=== PATIENT | female | born 1970 | race Hispanic/Latino ===

== ENCOUNTER 2023-04-03 18:11 | Inpatient (IN) | payer SELFPAY ==
[2023-04-03] VITALS (30 sets, daily range): BP systolic 137–220; BP diastolic 94–150; PULSE 64–138; RESP 16–34; TEMP 36.2–36.3; O2SAT 91–100; BMI 30.7
--- NOTE | ~2023-04-03 | CT_ITS ---
EXAMINATION: CTA chest PE protocol DATE: 04/03/2023 21:39 INDICATION: This of breath and hypoxia. TECHNIQUE: Computed tomography (CT) pulmonary angiogram of the chest was performed with 100 mL Omnipa que-350 intravenous contrast. Additional 3D reconstructions utilizing coronal maximum intensity proje ction (MIP) were performed. Automated exposure control and iterative reconstruction technique were em ployed. The dose-length product was 301.38 mGy-cm. COMPARISON: None FINDINGS: Excellent contrast opacification of the central pulmonary arteries. There are however numerous subseg mental pulmonary arteries throughout the bilateral lower lobes, lingula and right middle lobe which r emain unopacified. No contrast is seen within the draining veins from the lower lungs and it is uncle ar whether the absence of contrast opacification in the more peripheral pulmonary arteries and draini ng veins is due to extensive pulmonary emboli or due to the phase of contrast. There does however alena ear to be a more clear-cut eccentric filling defect within the relatively well-opacified lateral segm ental pulmonary artery of the right middle lobe consistent with pulmonary embolism. Moderate-sized ri ght and small left pleural effusions with associated dependent atelectasis in the bilateral lower lob es and to lesser extent right middle lobe and lingula. There is mosaic attenuation in the lungs with some patchy groundglass opacities more centrally in the left lower lobe and lingula which appear rela claudine mild pulmonary edema or pneumonia. Pulmonary infarct considered unlikely as the patchy groundglas s opacities are central and do not extend to the periphery of the lungs. Moderate cardiomegaly and mo derate-sized pericardial effusion. No leftward bowing of the ventricular septum to suggest right hear t strain. Atherosclerotic coronary artery calcifications. There is reflux of contrast into the inferi or vena cava and hepatic veins consistent with tricuspid regurgitation. Thoracic aorta is normal in c aliber. Mild thoracic spondylosis. IMPRESSION: 1. Nonocclusive pulmonary embolism within a lateral segmental pulmonary artery of the right middle lo be. There is additional absent contrast opacification of the subsegmental pulmonary arteries and pulm onary veins throughout the bilateral lower lungs which is equivocal for additional pulmonary emboli v ersus artifact of premature early pulmonary arterial phase of contrast. 2. Moderate-sized right and small left pleural effusions. 3. Mosaic attenuation in the lungs with more focal patchy groundglass opacities in the left lower lob e and lingula which could be related to mild pulmonary edema or pneumonia. 4. Moderate cardiomegaly with moderate-sized pericardial effusion. Reviewed, dictated and finalized at location A. IMPRESSION: 1. Nonocclusive pulmonary embolism within a lateral segmental pulmonary artery of the right middle lobe. There is additional absent contrast opacification of the subsegmental pulmonary arteries and pulmonary veins throughout the bilatera l lower lungs which is equivocal for additional pulmonary emboli versus artifac t of premature early pulmonary arterial phase of contrast. 2. Moderate-sized right and small left pleural effusions. 3. Mosaic attenuation in the lungs with more focal patchy groundglass opacities in the left lower lobe and lingula which could be related to mild pulmonary ed jonathan or pneumonia. 4. Moderate cardiomegaly with moderate-sized pericardial effusion.
--- NOTE | ~2023-04-03 | US_ITS ---
EXAMINATION: US venous doppler [facility] DATE: 04/04/2023 22:07 INDICATION: Acute pulmonary emboli. TECHNIQUE: Grayscale ultrasound images without and with compression and Doppler ultrasound images of the bilateral lower extremity veins were obtained. COMPARISON: None. FINDINGS: The visualized portions of right common femoral vein, profunda (deep) femoral vein, femoral vein, pop liteal vein, peroneal veins, posterior tibial veins, and greater saphenous vein outflow are patent. The visualized portions of left common femoral vein, profunda femoral vein, femoral vein, popliteal v ein, peroneal veins, posterior tibial veins, and greater saphenous vein outflow are patent. IMPRESSION: 1. No deep venous thrombosis. Reviewed, dictated and finalized at location E.
--- NOTE | ~2023-04-03 | CT_ITS ---
Non-contrast Head CT History: Altered mental status Technique: Axial non-contrast imaging of the brain was performed. Dose reduction technique was used on this scan by utilizing automated exposure control and iterative reconstruction technique. The dose -length product (DLP) was 605.33 mGy-cm. Findings: There is no evidence of intracranial hemorrhage, mass lesion, or acute infarct. Brain par enchyma appears normal. The ventricles and subarachnoid spaces are normal in size. The calvarium ap pears normal. The visualized paranasal sinuses and mastoid air cells are clear. Impression: No significant abnormality seen. Reviewed, dictated and finalized at location . Impression: No significant abnormality seen.
--- NOTE | ~2023-04-03 | CT_ITS ---
CT ANGIOGRAM NECK AND HEAD History: Altered mental status. Technique: Serial spiral axial images through the head and neck were obtained during arterial phase I V injection of 100 cc of Omnipaque 350. 3-D postprocessing and MIP images were then reconstructed on the remote workstation. Dose reduction technique was used on this scan by utilizing automated exposur e control and iterative reconstruction technique. The dose-length product (DLP) was 1013.97 mGy-cm. CTA neck findings: Right vertebral artery is widely patent. There is probable complete occlusion of the left vertebral artery is origin versus markedly hypoplastic left vertebral artery. There is minim al reconstitution/filling of the mid to distal left vertebral artery. Bilateral common carotid, inter nal carotid, and external carotid arteries are patent. The proximal right internal carotid artery dem onstrates 0% stenosis relative to the normal distal artery lumen diameter. The proximal left internal carotid artery demonstrates 0% stenosis relative to the normal distal artery lumen diameter. Moderate right pleural effusion and small left pleural effusion are partially imaged. CTA head findings: Distal right vertebral artery, basilar artery, and posterior tissue arteries are p atent. Distal left vertebral artery is essentially completely opacified. Distal internal carotid norberto derrell, middle cerebral arteries, and anterior cerebral arteries are patent. No significant stenosis or aneurysm of the anterior circulation. Impression: Left vertebral artery is nearly completely unopacified, either due to proximal occlusion or marked hy poplasia. There is minimal reconstitution/filling of the mid to distal left vertebral artery, which i s markedly small in caliber. Remaining major cervical and intracranial vessels are unremarkable. Reviewed, dictated and finalized at location . Impression: Left vertebral artery is nearly completely unopacified, either due to proximal occlusion or marked hypoplasia. There is minimal reconstitution/filling of the mid to distal left vertebral artery, which is markedly small in caliber. Remaining major cervical and intracranial vessels are unremarkable.
--- NOTE | ~2023-04-03 | XR_ITS ---
EXAMINATION: XR chest 1V portable DATE: 04/03/2023 19:34 INDICATION: Dyspnea and bilateral lower limb swelling TECHNIQUE: frontal view of the chest was obtained. COMPARISON: None FINDINGS: Diffuse increased interstitial pattern throughout both lungs consistent with mild pulmonary edema. Op acities in the bilateral lower lung zones with blunting at the costophrenic angles consistent with sm all bilateral pleural effusions and associated atelectasis although pneumonia not excludable. Cardiom egaly. IMPRESSION: 1. Likely congestive heart failure with cardiomegaly and diffuse mild pulmonary edema. 2. Small bilateral pleural effusions with associated basilar atelectasis although pneumonia not exclu dable. Reviewed, dictated and finalized at location A. IMPRESSION: 1. Likely congestive heart failure with cardiomegaly and diffuse mild pulmonary edema. 2. Small bilateral pleural effusions with associated basilar atelectasis althou gh pneumonia not excludable.
--- NOTE | 2023-04-03 18:33 | ECG_ITS ---
Measurements Intervals Maxie Rate: 132 P: 30 FL: 149 QRS: 127 QRSD: 96 T: -4 QT: 384 QTc: 571 Interpretive Statements SINUS TACHYCARDIA POSSIBLE RIGHT VENTRICULAR HYPERTROPHY NONSPECIFIC ST & T-WAVE ABNORMALITY ABNORMAL ECG NO PREVIOUS ECG AVAILABLE FOR COMPARISON Electronically Signed On 04-04-2023 16:48:30 CDT by Joe Mitchell M.D.
[2023-04-03 18:43] LABS: Glucose Point of Care 453 mg/dl (65-105)
--- NOTE | 2023-04-03 18:43 | PC.NURSE ---
BS 453
--- NOTE | 2023-04-03 18:47 | ED.GENADULT ---
HPI - General Adult General Chief complaint: Unspecified <TREASURE Kelly Last Filed: 04/04/23 01:41> Stated complaint: htn <TREASURE Kelly Last Filed: 04/04/23 01:41> Time Seen by Provider: 04/03/23 18:39 <TREASURE Kelly Last Filed: 04/04/23 01:41> Source: patient and family <TREASURE Kelly Last Filed: 04/04/23 01:41> Mode of arrival: ambulatory <TREASURE Kelly Last Filed: 04/04/23 01:41> Limitations: language barrier <TREASURE Kelly Last Filed: 04/04/23 01:41> History of Present Illness HPI narrative: Patient is a 52-year-old female who presents to the ED with report of shortness of breath and lower extremity swelling. Patient is primarily Upper Sorbian-speaking. Son at bedside assisted in providing information. He reports patient travelled to the [facility] 10 days ago from [place]. He reports over the last 1 month, patient has had intermittent shortness of breath, cough, and lower extremity swelling. Son reports that these symptoms have worsened over the last 8 days. Patient denies any chest pain. She denies previous history of CAD/CHF. Denies lower extremity pain. She does mention having slight upper abdominal pain yesterday, but denies any pain today. Denies nausea, vomiting, fevers, urinary complaints. Patient has history of diabetes. She does not check her sugars at home. Son reports she has previously been on a pill for her diabetes, but states she saw her doctor before coming to the [facility] and was told everything was fine so she did not bring her medicine with her. She does not use insulin. <TREASURE Kelly Last Filed: 04/04/23 01:41> Related Data Allergies/adverse reactions: Allergies Allergy/AdvReac Type Severity Reaction Status Date / Time No Known Allergies Allergy Verified 04/03/23 19:19 <TREASURE Kelly Last Filed: 04/04/23 01:41> Review of Systems Review of Systems: CONSTITUTIONAL: Denies fever, chills, or sweats. ENT: Denies rhinorrhea, congestion, sore throat. CARDIOVASCULAR: See HPI. RESPIRATORY: See HPI. GASTROINTESTINAL: See HPI. GENITOURINARY: Denies dysuria or hematuria. MUSCULOSKELETAL: See HPI. NEUROLOGIC: Denies headache, numbness, or weakness. <Sadia Em PA-C - Last Filed: 04/04/23 01:41> All systems reviewed & are unremarkable except as noted in HPI and below <Sadia Em PA-C - Last Filed: 04/04/23 01:41> PMF Past Medical History Medical History: Medical History Diabetes mellitus Essential hypertension <Sadia Em PA-C - Last Filed: 04/04/23 01:41> Surgical History Surgical History: Surgical History History of (~2010) <Sadia Em PA-C - Last Filed: 04/04/23 01:41> Family History Family History: Family History Mother of unknown cause, Onset Age: 52 Father of unknown cause, Onset Age: 70 <Sadia Em PA-C - Last Filed: 04/04/23 01:41> Social History Social History: Social History Social History: The patient is here visiting from [place]. She has 8 children. She is a lifelong nonsmoker but has had heavy exposure to cooking over open fires. She denies any history of alcohol use or drug use. She was a homemaker. Smoking status: Never smoker Alcohol intake: never Substance use: never Lack of Transportation: No Lack of Food: Never True Current Housing: I Have Housing Concerned About Future Housing: No Difficulty Paying Gas/Electric Bills: No Difficulty Paying for Meds: No Currently Unemployed: No Education: Decline to Answer Difficulty
[2023-04-03 18:55] LABS: Basophils Absolute Auto 0.1 K/mm3 (0.0-0.1); Basophils Percent Auto 0.6 % (0.2-1.2); Eosinophils Percent Auto 0.5 % (0-4.4); Hematocrit 55.3 % (37.0-47.0); Immature Granulocyte Absolute 0.03 K/mm3 (0.00-0.031); Immature Granulocyte Percent A 0.4 % (0-0.5); Lymphocytes Absolute Auto 2.04 K/mm3 (0.9-3.2); Lymphocytes Percent Auto 24.7 % (18.3-44.2); Mean Corpuscular HGB Conc 32.5 g/dl (32-36); Mean Corpuscular Hemoglobin 31.2 pg (26-34); Mean Corpuscular Volume 95.8 fl (80-100); Mean Platelet Volume 10.8 fl (7.4-10.4); Monocytes Absolute Auto 0.7 K/mm3 (0.1-0.6); Monocytes Percent Auto 8.1 % (2.6-8.5); Neutrophils Absolute Auto 5.4 K/mm3 (1.3-6.7); Neutrophils Percent Auto 65.7 % (45.5-73.1); Platelet Count Result 243 k/mm3 (150-375); Red Blood Count 5.77 M/mm3 (4.2-5.4); Red Cell Distribution Width 14.8 % (11.5-14.5); White Blood Count 8.3 K/mm3 (4.5-10.0)
--- NOTE | 2023-04-03 18:58 | PC.NURSE ---
unable to obtain accurate spo2, head sensor applied.
[2023-04-03 19:04] LABS: Prothrombin Time 13.9 Seconds (11.1-14.7)
[2023-04-03 19:05] LABS: Partial Thromboplastin Time 28.9 SECONDS (22.3-36.8)
[2023-04-03 19:09] LABS: Base Excess ABG -0.3 mEq/l (+/-2.0); Carboxyhemoglobin 0.3 % THb (0-2.0); Fractional Inspired Oxygen 28 %; HCO3 ABG 26.1 mEq/l (22.0-26.0); Methemoglobin ABG 0.4 %THb (0-1.5); Oxygen Content ABG 24.4 %vol (16.0-22.0); Oxygen Saturation ABG 91.5 % (95.0-100.0); Oxyhemoglobin 90.7 % THb (90.0-100.0); PCO2 ABG 48.4 mmHg (35.0-45.0); PO2 ABG 64.5 mmHg (80.0-100.0); Reduced Hemoglobin 8.6 %THb (0-5.0); Total Hemoglobin 19.2 g/dL (12.0-18.0)
[2023-04-03 19:10] LABS: Alanine Aminotransferase 32 U/L (6-35); Albumin Level 3.7 g/dL (3.5-5.1); Alkaline Phosphatase 194 U/L (38-126); Anion Gap 7 mmol/L (8-16); Aspartate Amino Transferase 44 U/L (14-36); Blood Urea Nitrogen 18 mg/dL (7-17); Calcium 9.2 mg/dL (8.4-10.2); Carbon Dioxide 32 mmol/L (22-30); Chloride 94 mmol/L (98-107); Estimated CRCL calculation 97 ml/min; Estimated Glomerular Filt Rate > 60; Glucose 407 mg/dL (65-110); Potassium 3.9 mmol/L (3.4-5.0); Sodium 133 mmol/L (137-145)
[2023-04-03 19:10] LABS: Device NASAL CANNULA; Modified Allen's Test Pass; Site Drawn LEFT RADIAL
[2023-04-03 19:18] LABS: Lactic Acid Reflex 2.8 mmol/L (0.7-2.0)
[2023-04-03 19:23] LABS: Magnesium 1.8 mg/dL (1.6-2.3); Phosphorus 4.3 mg/dL (2.5-4.5)
[2023-04-03 19:24] LABS: Beta-Hydroxybutyrate/Acetoacetate 0.21 mmol/L (0.02-0.27)
[2023-04-03] MEDS: LABETALOL HCL INJ 100 MG/20 ML VIAL 20 MG IV PUSH (19:24)
[2023-04-03 19:25] LABS: NT Pro B Type Natriuretic Pept 8550 pg/mL (19.9-100); Troponin I 0.047 ng/mL (0.000-0.034)
[2023-04-03] MEDS: Please add drug allergy info to patient profile. 1 EACH XX (19:25)
[2023-04-03 19:38] LABS: Appearance Urine Clear (Clear); Bacteria Urine None Seen /hpf; Bilirubin Urine Negative (Negative); Blood Urine 1+ (Negative); Color Urine Yellow (Yellow); Glucose Urine UA 3+ mg/dL (Negative); Ketones Urine Negative (Negative); Leukocyte Esterase Ur Negative LEU/UL (Negative); Nitrate Urine Negative (Negative); Protein Urine 4+ mg/dL (Negative); Specific Grav Ur 1.028 (1.001-1.035); Squamous Epithelial Cell Urine Occasional /hpf (Few); WBC Urine 0-5 /hpf; pH Urine 6.5 (5.0-9.0)
[2023-04-03 19:42] LABS: Add Urine Microscopic? YES
[2023-04-03] MEDS: FUROSEMIDE INJ 40 MG/4 ML VIAL IV PUSH (19:49)
[2023-04-03 21:07] LABS: Hemoglobin A1C 12.9 % (<5.7)
[2023-04-03 21:22] LABS: Glucose Point of Care 432 mg/dl (65-105)
--- NOTE | 2023-04-03 21:42 | PM.IMHP ---
H&P: HPI History of Present Illness Date/Time: 04/03/23 21:42 Chief Complaint: Shortness of breath Narrative: 52-year-old female a past medical history of diabetes and essential hypertension who presented to the ER with shortness of breath, and leg swelling. The patient is from [place] in is here visiting family for for the next 2 months. Patient provides the following history through her son who was interpreting. She states that she has been having a dry cough for 1 month. She denies any fevers or chills. She has been having leg swelling that occurs intermittently. It went away after her recent doctor's visit about a month ago but has now recurred in the last 10 days. She reports aching in the back of her calves. She has been having increasing shortness of breath over the last 8 days. She re has been having orthopnea for the last 2 days. She was having some epigastric discomfort yesterday that occurred after eating a large meal. She denies any chest pain. She denies any palpitations. She denies a known history of heart failure. She reports that her doctor told her that her diabetes and blood pressures were good at her last doctor's visit about 3 weeks ago so she stopped taking all of her medications. She did not bring her medications with her for her trip. She denies any foamy urine, changes in urinary frequency. She does not check her sugars at home. Her glucoses in the ER were in the 400s. She denies any symptoms of peripheral neuropathy her foot wounds. On arrival to the ER the patient's blood pressures were markedly uncontrolled with systolics greater than 200. Blood pressures were improved after dose of IV labetalol and hydralazine. Review of Systems Review of Systems: 12 systems were reviewed with pertinent positives and negatives per HPI. Except as documented in the HPI, all other systems were reviewed and are negative. She denies any abdominal symptoms. She denies any increased urinary frequency or urgency or foaming urine. She does snore. She denies excessive daytime fatigue or somnolence. [facility] Past Medical History Medical History (Updated 04/03/23 @ 23:23 by Joyce Edwards DO) Diabetes mellitus Essential hypertension Surgical History Surgical History (Updated 04/03/23 @ 23:15 by Joyce Edwards DO) History of (~2010) Family History Family History (Updated 04/03/23 @ 23:16 by Joyce Edwards DO) Mother of unknown cause, Onset Age: 52 Father of unknown cause, Onset Age: 70 Social History Social History (Updated 04/03/23 @ 23:16 by Joyce Edwards DO) Social History: The patient is here visiting from [place]. She has 8 children. She is a lifelong nonsmoker but has had heavy exposure to cooking over open fires. She denies any history of alcohol use or drug use. She was a homemaker. Meds Home Medications and Allergies Allergies Allergy/AdvReac Type Severity Reaction Status Date / Time No Known Allergies Allergy Verified 04/03/23 19:19 Vital Signs Vital Signs - 24 hr 04/03/23 18:28 04/03/23 18:43 04/03/23 18:44 Temperature 97.1 F L Pulse Rate 131 H 131 H Respiratory Rate 16 Blood Pressure 220/150 H Pulse Oximetry 93 Oxygen Delivery Oxygen Flow Rate 04/03/23 18:44 04/03/23 18:49 04/03/23 18:52 Temperature Pulse Rate 133 H Respiratory Rate 29 H Blood Pressure 219/150 H Pulse Oximetry 91 92 Oxygen Delivery Nasal Cannula Nasal Cannula Oxygen Flow Rate 2 2 04/03/23 18:38 04/03/23 18:45 04/03/23 19:02 Temperature Pulse Rate 138 H 133 H 136 H Respiratory Rate 34 H 30 H 30 H Blood Pressure Pulse Oximetry Oxygen Delivery Oxygen Flow Rate 04/03/23 19:15 04/03/23 19:43 04/03/23 19:28 Temperature Pulse Rate 127 H 124 H Respiratory Rate 20 30 H Blood Pressure 152/110 H 169/142 H Pulse Oximetry 93 Oxygen Delivery Oxygen Flow Rate
[2023-04-03 22:07] LABS: Reflex Lactic Acid Yes or No Add Lactic
[2023-04-03 22:47] LABS: Troponin I 0.052 ng/mL (0.000-0.034)
[2023-04-03] MEDS: INSULIN ASPART (*BKC) 100 UNITS/ML 8 UNITS SUB-Q (22:52)
[2023-04-03] MEDS: ENOXAPARIN 80 MG/0.8 ML SYRINGE 73 MG SUB-Q (22:55)
--- NOTE | 2023-04-03 23:18 | ADMGEN ---
This patient, Jessica Stock, was admitted to IMU Room 210-01. Patient/family oriented to hospital policies and general routines including ID bracelet, bed and alarms, visiting hours, pain management, procedures, bathroom and other care routines, personal items, smoking policy, room service/diet, and visiting hours. Information on how to activate the Rapid Response Team has been discussed. Patient/Family are encouraged to report perceived risks to care and to ask questions if they do not understand what they are told or what they should do.
[2023-04-03 23:42] LABS: Lactic Acid 1.8 mmol/L (0.7-2.0)
[2023-04-04] VITALS (19 sets, daily range): BP systolic 125–149; BP diastolic 70–94; PULSE 57–96; RESP 17–19; TEMP 36.3–36.8; O2SAT 97–100; BMI 30.7
[2023-04-04] MEDS: carvediloL 12.5 MG TABLET PO ×3 (01:17→21:39)
[2023-04-04 02:45] LABS: Glucose Point of Care 356 mg/dl (65-105)
[2023-04-04 05:08] LABS: Troponin I 0.057 ng/mL (0.000-0.034)
--- NOTE | 2023-04-04 06:00 | ECHO_ITS ---
Patient Info Name: Jessica Stock Age: 52 years : 1970 Gender: Female Ht: 60 in Wt: 157 lbs BSA: 1.76 m2 HR: 70 bpm BP: 149 / 86 mmHg Heart Rhythm: Sinus Rhythm Technical Quality: Good Exam Date: 04/04/2023 8:47 AM Exam Location: [facility] Card Pulmonary Patient Status: Inpatient Admit Date: 04/04/2023 Staff Ordering Physician: Sadia Em PA-C Tavern Keeper: Louisa Rider RDCS Attending Provider: Joyce Edwards DO Referring Physician: Maria Antonia CHE; Exam Type: CA echo dop color flow w con Study Info Indications - new onset CHF, +TROP Complete two-dimensional, color flow and Doppler transthoracic echocardiogram is performed with contrast to opacify the left ventricle and to improve the deliniation of the left ventricle endocardial borders. Contrast/Agitated Saline Contrast/Ag. Saline: Definity Amount: 2.00 ml Administered By: Louisa Rider RDCS Existing IV Access: Yes IV Access Condition: patent with no signs of infiltration Summary 1. Left ventricular systolic function is moderately reduced, estimated at 35% with hypokinesis of the apex, anterior and anteroseptal cortés. Cannot rule out LV apical thrombus. Myocardium has a speckled appearance which can be seen with infiltrative process. Clinical correlation advised. 2. Large left pleural effusion. 3. There is small pericardial effusion without evidence for tamponade physiology. 4. There is a fixed calcified echodensity in the ascending aorta most likely consistent with calcified plaque. Clinical correlation advised. Consider CT angiogram of the chest or transesophageal echocardiogram if clinically indicated. 5. Left ventricular chamber dimension is normal. 6. There is mildly increased left ventricular wall thickness. 7. The left ventricular diastolic function is abnormal. 8. Right atrial chamber dimension is severely enlarged. 9. There is no aortic valve stenosis. 10. There is moderate to severe mitral valve regurgitation. 11. There is moderate tricuspid valve regurgitation. 12. Severe pulmonary hypertension, estimated pulmonary arterial systolic pressure is 60 mmHg. Left Ventricle Left ventricular systolic function is moderately reduced, estimated at 35% with hypokinesis of the apex, anterior and anteroseptal cortés. Cannot rule out LV apical thrombus. Myocardium has a speckled appearance which can be seen with infiltrative process. Clinical correlation advised. Left ventricular chamber dimension is normal. There is mildly increased left ventricular wall thickness. The left ventricular diastolic function is abnormal. Right Ventricle Right ventricular chamber dimension is normal. Right ventricular systolic function is reduced. Left Atria Left atrial chamber dimension is mildly enlarged. Right Atria Right atrial chamber dimension is severely enlarged. Aortic Valve The aortic valve is trileaflet. There is mild aortic valve sclerosis. There is no aortic valve stenosis. There is trace aortic valve regurgitation. Pulmonic Valve The pulmonic valve is not well visualized. There is trace pulmonic regurgitation. Mitral Valve The mitral valve has myxomatous leaflets. There is moderate to severe mitral valve regurgitation. Tricuspid Valve The tricuspid valve leaflets are normal. There is moderate tricuspid valve regurgitation. Severe pulmonary hypertension, estimated pulmonary arterial systolic pressure is 60 mmHg. Pericardium/Pleural There is small pericardial effusion without evidence for tamponade physiology.
[2023-04-04 07:23] LABS: Hematocrit 51.5 % (37.0-47.0); Hemoglobin 16.6 g/dL (12.0-15.0); Mean Corpuscular HGB Conc 32.2 g/dl (32-36); Mean Corpuscular Hemoglobin 30.6 pg (26-34); Mean Platelet Volume 12.2 fl (7.4-10.4); Platelet Count Result 211 k/mm3 (150-375); Red Blood Count 5.42 M/mm3 (4.2-5.4); Red Cell Distribution Width 14.6 % (11.5-14.5); White Blood Count 7.7 K/mm3 (4.5-10.0)
[2023-04-04 07:35] LABS: Anion Gap 4 mmol/L (8-16); Blood Urea Nitrogen 16 mg/dL (7-17); Calcium 8.6 mg/dL (8.4-10.2); Carbon Dioxide 33 mmol/L (22-30); Chloride 96 mmol/L (98-107); Estimated CRCL calculation 96 ml/min; Estimated Glomerular Filt Rate > 60; Glucose 331 mg/dL (65-110); Potassium 3.4 mmol/L (3.4-5.0); Sodium 133 mmol/L (137-145)
[2023-04-04 07:47] LABS: Glucose Point of Care 247 mg/dl (65-105)
[2023-04-04] MEDS: PERFLUTREN LIPID MICROSPHERES 1.5 ML VIAL DILUTED TO 10 ML TOTAL VOLUME IV PUSH (09:19)
[2023-04-04] MEDS: FUROSEMIDE INJ 40 MG/4 ML VIAL IV PUSH ×2 (10:01→21:40)
[2023-04-04] MEDS: INSULIN GLARGINE (*BKC) 100 UNITS/ML 7 UNITS SUB-Q (10:02)
[2023-04-04] MEDS: INSULIN ASPART (*BKC) 100 UNITS/ML SUB-Q ×2 (10:03→14:10)
[2023-04-04] MEDS: EMPAGLIFLOZIN 10 MG TABLET PO (10:05)
[2023-04-04] MEDS: metFORMIN HCL 500 MG TABLET PO ×2 (10:05→18:19)
[2023-04-04] MEDS: ENOXAPARIN 80 MG/0.8 ML SYRINGE 73 MG SUB-Q (10:06)
--- NOTE | 2023-04-04 10:19 | PM.IMPN ---
Progress Note: A&P Assessment and Plan (1) Acute respiratory failure with hypoxia: Code(s): J96.01 - Acute respiratory failure with hypoxia Status: Acute Assessment and Plan: Patient presents with hypoxia. CXR showing CMG, pulmonary edema and bilateral pleural effusions. CTA showing nonocclusive PE lateral segment RML and absent contrast bilateral LE with moderate right and small left pleural effusions. Also with ground glass opacities, CMG and moderate pericardial effusion. Hypoxia related to PE and CHF exacerbation. Continue IV Lasix. Continue Lovenox Wean O2 as tolerated (2) New onset of congestive heart failure: Code(s): I50.9 - Heart failure, unspecified Status: Acute Assessment and Plan: Imaging as mentioned above. Pedal edema and pulmonary edema noted. BNP 8550. Echo ordered. Continue IV Lasix. Empaglifloxin and Coreg added. Monitor strict I&O's and daily weights. Follow renal function, electrolyte panel and UOP. Low-sodium consistent carbohydrate diet ordered. CHF teaching. (3) Pulmonary embolism: Qualifiers: Acute cor pulmonale presence: without acute cor pulmonale Chronicity: acute Pulmonary embolism type: other Qualified Code(s): I26.99 - Other pulmonary embolism without acute cor pulmonale Code(s): I26.99 - Other pulmonary embolism without acute cor pulmonale Status: Acute Assessment and Plan: Patient has subsegmental pulmonary embolism with poor contrast opacification to the lower lobes. Patient has been placed on therapeutic Lovenox. Pulmonary embolism likely due to patient's recent travel. Echocardiogram has already been ordered to evaluate cardiac structure and function will also evaluate for pulmonary hypertension. Doppler LE ordered. Continue the same. Transition to Eliquis (or Coumadin if unable to afford Eliquis) (4) Uncontrolled diabetes mellitus: Qualifiers: Diabetes mellitus type: type 2 Glycemic state: with hyperglycemia Qualified Code(s): E11.65 - Type 2 diabetes mellitus with hyperglycemia Status: Acute Assessment and Plan: A1c 12.9. The patient's blood glucose was reviewed on 04/04 Glucose remains poorly controlled. Empagliflozin and metformin started Continue AccuCheks covering with sliding scale. Hypoglycemia protocol available as needed. Continue current medications. Add lantus. (5) Essential hypertension: Code(s): I10 - Essential (primary) hypertension Status: Acute Assessment and Plan: Patient's blood pressure was reviewed on 04/04 Blood pressure was extremely elevated on admission to 220/150 related to being off her home medications. She was started on Coreg and Lasix. BP better Will continue current medications. (6) Elevated troponin: Code(s): R79.89 - Other specified abnormal findings of blood chemistry Status: Acute Assessment and Plan: Related to PE and CHF. Levels flat. no felt to be ACS. As above (7) Polycythemia: Code(s): D75.1 - Secondary polycythemia Status: Acute Assessment and Plan: Patient with polycythemia felt related to chronic hypoxic respiratory failure. Will continue give patient diuretics and wean oxygen as tolerated. Check Apnea Link when off O2. (8) Proteinuria due to type 2 diabetes mellitus: Code(s): E11.29 - Type 2 diabetes mellitus with other diabetic kidney complication; R80.9 - Proteinuria, unspecified Status: Acute Assessment and Plan: Patient does have significant proteinuria. Likely due to her chronically uncontrolled diabetes mellitus. Serum albumin okay. Follow Plan DVT Prophylaxis - Lovenox Code status - full Subjective Date/time seen: 04/04/23 10:19 Interval history: 52yo female with DM and HTN here for shortness of breath. Patient is Setswana-speaking only. 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 She has had pedal edema for the pas
[2023-04-04 11:44] LABS: Glucose Point of Care 261 mg/dl (65-105)
--- NOTE | 2023-04-04 14:13 | IVDEFINITY ---
Prior to administration of IV Definity the patient was educated on the risks and benefits of the imaging enhancing agent including potential adverse side effects. The patient verbalized understanding. Allergies were verified. No exclusion criteria were identified and at least one of the following inclusion criteria were met: 1) physician request, 2) patient technically difficult to image (per the [place] [employer] guidelines of two or more segments not discernable within the apical view), or 3) questionable left ventricular function. ?
--- NOTE | 2023-04-04 15:11 | PC.NURSE ---
Pancho, pts son reports patient takes a diabetes medication and blood pressure medication but does not know the names or doses of medications. Pt also reports she has daily medication but did not bring it with her to the [place] and does not know the names of any of her medications.
[2023-04-04 16:19] LABS: Glucose Point of Care 104 mg/dl (65-105)
[2023-04-04 20:47] LABS: Glucose Point of Care 141 mg/dl (65-105)
[2023-04-04] MEDS: INSULIN GLARGINE (*BKC) 100 UNITS/ML 11 UNITS SUB-Q (21:40)
[2023-04-04] MEDS: ENOXAPARIN 80 MG/0.8 ML SYRINGE 70 MG SUB-Q (21:41)
[2023-04-05] VITALS (21 sets, daily range): BP systolic 108–143; BP diastolic 65–103; PULSE 59–78; RESP 16–18; TEMP 35.7–36.5; O2SAT 93–100
[2023-04-05 05:18] LABS: Basophils Absolute Auto 0.1 K/mm3 (0.0-0.1); Basophils Percent Auto 0.7 % (0.2-1.2); Eosinophils Absolute Auto 0.1 K/mm3 (0-0.3); Eosinophils Percent Auto 0.7 % (0-4.4); Hematocrit 55.7 % (37.0-47.0); Hemoglobin 18.4 g/dL (12.0-15.0); Immature Granulocyte Absolute 0.03 K/mm3 (0.00-0.031); Immature Granulocyte Percent A 0.4 % (0-0.5); Lymphocytes Absolute Auto 1.64 K/mm3 (0.9-3.2); Mean Corpuscular Hemoglobin 31.2 pg (26-34); Mean Corpuscular Volume 94.4 fl (80-100); Mean Platelet Volume 11.5 fl (7.4-10.4); Monocytes Absolute Auto 0.5 K/mm3 (0.1-0.6); Monocytes Percent Auto 6.8 % (2.6-8.5); Neutrophils Absolute Auto 5.2 K/mm3 (1.3-6.7); Neutrophils Percent Auto 69.4 % (45.5-73.1); Platelet Count Result 238 k/mm3 (150-375); Red Cell Distribution Width 15.2 % (11.5-14.5); White Blood Count 7.5 K/mm3 (4.5-10.0)
[2023-04-05 05:35] LABS: Alanine Aminotransferase 28 U/L (6-35); Albumin Level 3.3 g/dL (3.5-5.1); Alkaline Phosphatase 114 U/L (38-126); Aspartate Amino Transferase 42 U/L (14-36); Blood Urea Nitrogen 19 mg/dL (7-17); Calcium 9.3 mg/dL (8.4-10.2); Carbon Dioxide > 40 mmol/L (22-30); Chloride 93 mmol/L (98-107); Estimated CRCL calculation 81 ml/min; Estimated Glomerular Filt Rate > 60; Glucose 85 mg/dL (65-110); Magnesium 1.7 mg/dL (1.6-2.3); Phosphorus 5.8 mg/dL (2.5-4.5); Potassium 3.4 mmol/L (3.4-5.0); Sodium 137 mmol/L (137-145)
[2023-04-05 05:40] LABS: Immunoglobulin A 549 mg/dL (70-400); Immunoglobulin G 1130 mg/dL (700-1600); Immunoglobulin M 85 mg/dL (40-230)
[2023-04-05 05:43] LABS: Iron 57 ug/dL (37-170)
[2023-04-05 05:52] LABS: Percent Iron Saturation 15 % (20-50)
[2023-04-05 06:13] LABS: Thyroid Stimulating Hormone Reflex 0.278 uIU/mL (0.465-4.68)
[2023-04-05 07:11] LABS: Free T4 Free Thyroxine Reflex 1.45 ng/dL (0.78-2.19)
[2023-04-05 08:23] LABS: Glucose Point of Care 89 mg/dl (65-105)
[2023-04-05] MEDS: metFORMIN HCL 500 MG TABLET PO ×2 (08:36→16:21)
[2023-04-05] MEDS: EMPAGLIFLOZIN 10 MG TABLET PO (08:36)
[2023-04-05] MEDS: carvediloL 12.5 MG TABLET PO ×2 (08:36→20:41)
[2023-04-05] MEDS: FUROSEMIDE INJ 40 MG/4 ML VIAL IV PUSH ×2 (08:37→20:41)
[2023-04-05] MEDS: POTASSIUM CHLORIDE 20 MEQ ER TABLET 40 MEQ PO (08:52)
[2023-04-05] MEDS: lisinopriL 10 MG TABLET PO (08:53)
[2023-04-05 09:22] LABS: Folic Acid 17.8 ng/mL (2.76->20)
[2023-04-05 09:24] LABS: Total Triiodothyronine (T3) 1.07 NG/ML (0.97-1.69)
[2023-04-05] MEDS: ENOXAPARIN 80 MG/0.8 ML SYRINGE 70 MG SUB-Q ×2 (10:07→23:26)
--- NOTE | 2023-04-05 11:49 | PM.CNCAR ---
Assessment and Plan Assessment and plan (1) Pulmonary embolism: Qualifiers: Acute cor pulmonale presence: without acute cor pulmonale Chronicity: acute Pulmonary embolism type: other Qualified Code(s): I26.99 - Other pulmonary embolism without acute cor pulmonale Code(s): I26.99 - Other pulmonary embolism without acute cor pulmonale Status: Acute Assessment and Plan: On Lovenox and starting Warfarin. (2) Elevated troponin: Code(s): R79.89 - Other specified abnormal findings of blood chemistry Status: Acute Assessment and Plan: Probably due to PE and CHF. Doubt ACS given no chest pains and no significant ST changes on EKG and slightly elevated flat troponin up to .057. (3) New onset of congestive heart failure: Code(s): I50.9 - Heart failure, unspecified Status: Acute Assessment and Plan: Acute on chronic systolic heart failure or acute systolic heart failure. On Lasix 40 mg IV BID. Started on Jardiance, Coreg, Lisinopril. Monitor fluid status and electrolytes. Since have acute pulm embolism, would have her treated for this with anticoagulation, and will workup her heart failure in future as outpatient. (4) Essential hypertension: Code(s): I10 - Essential (primary) hypertension Status: Acute Assessment and Plan: Stable. (5) Diabetes mellitus: Code(s): E11.9 - Type 2 diabetes mellitus without complications Status: Acute Assessment and Plan: Managed as per hospitalist. History of Present Illness History of Present Illness Consult date/time: 04/05/23 11:49 Reason For Visit: New Onset CHF, Positive Trop, Hypoxia, Uncontrolle Narrative: 52 yr old woman kenyan speaking only presents to hospital due to edema of legs. Her son served as polls or surveys interviewer. She has a history of hypertension. Reports that she had a doctor in [place] and when she came here she did not bring her medication and has not taken it for 8 days. She noted swelling of legs and sob that have improved since being in hospital. Denies chest pain, orthopnea, PND, dizziness, palpitations. Review of Systems Review of Systems: All systems reviewed & are unremarkable except as noted in HPI and below Constitutional: Constitutional: Reports as per HPI, Denies chills and Denies fever(s) Cardiovascular: Cardiovascular: Reports as per HPI, Denies chest pain and Denies irregular heart rhythm Respiratory: Respiratory: Reports as per HPI and Denies dyspnea Gastrointestinal: Gastrointestinal: Reports as per HPI and Denies abdominal pain Genitourinary: Genitourinary: Reports as per HPI and Denies dysuria Musculoskeletal: Musculoskeletal: Reports as per HPI Neurologic: Reports as per HPI, Denies dizziness and Denies syncope [facility] Past Medical History Medical History Diabetes mellitus Essential hypertension Surgical History Surgical History History of (~2010) Family History Family History Mother of unknown cause, Onset Age: 52 Father of unknown cause, Onset Age: 70 Social History Social History Social History: The patient is here visiting from [place]. She has 8 children. She is a lifelong nonsmoker but has had heavy exposure to cooking over open fires. She denies any history of alcohol use or drug use. She was a homemaker. Smoking status: Never smoker Alcohol intake: never Substance use: never Lack of Transportation: No Lack of Food: Never True Current Housing: I Have Housing Concerned About Future Housing: No Difficulty Paying Gas/Electric Bills: No Difficulty Paying for Meds: No Currently Unemployed: No Education: Decline to Answer Difficulty w/ C
[2023-04-05 12:31] LABS: Glucose Point of Care 140 mg/dl (65-105)
--- NOTE | 2023-04-05 16:06 | PM.IMPN ---
Progress Note: A&P Assessment and Plan (1) Acute respiratory failure with hypoxia: Code(s): J96.01 - Acute respiratory failure with hypoxia Status: Acute Assessment and Plan: Patient presents with hypoxia. CXR showing CMG, pulmonary edema and bilateral pleural effusions. CTA showing nonocclusive PE lateral segment RML and absent contrast bilateral LE with moderate right and small left pleural effusions. Also with ground glass opacities, CMG and moderate pericardial effusion. Hypoxia related to PE and CHF exacerbation. Continue IV Lasix. Continue Lovenox Wean O2 as tolerated (2) New onset of congestive heart failure: Code(s): I50.9 - Heart failure, unspecified Status: Acute Assessment and Plan: Patient with acute systolic and diastolic CHF. Imaging as mentioned above. Pedal edema and pulmonary edema noted. BNP 8550. Echo showing: --EF 35% with hypokinesis of apex, anterior and anteroseptal cortés. --Can not rule out LV thrombus. Speckled myocardium. Small pericardial effusion. --Ascending aortic plaque. large left pleural effusion. --Diastolic dysfunction and severe pulmonary HTN. Moderate-severe MR and Mod TR. Started on IV Lasix. Empagliflozin and Coreg added. I&O inaccurate. Daily weights showing down 1.7kg. Follow renal function, electrolyte panel and UOP. Low-sodium consistent carbohydrate diet ordered. CHF teaching. Continue diuresis. Cardiology consulted and appreciate their input. labs drawn to assess for infiltrative cardiomyopathy Add Lisinopril. (3) Pulmonary embolism: Qualifiers: Acute cor pulmonale presence: without acute cor pulmonale Chronicity: acute Pulmonary embolism type: other Qualified Code(s): I26.99 - Other pulmonary embolism without acute cor pulmonale Code(s): I26.99 - Other pulmonary embolism without acute cor pulmonale Status: Acute Assessment and Plan: Patient has subsegmental pulmonary embolism with poor contrast opacification to the lower lobes. Patient was placed on therapeutic Lovenox. Pulmonary embolism likely due to patient's recent travel. LE venous Dopplers negative for DVT Echo as above. Continue the same. She does not have insurance so will transition to Coumadin. Daily INR (4) Uncontrolled diabetes mellitus: Qualifiers: Diabetes mellitus type: type 2 Glycemic state: with hyperglycemia Qualified Code(s): E11.65 - Type 2 diabetes mellitus with hyperglycemia Status: Acute Assessment and Plan: A1c 12.9. The patient's blood glucose was reviewed on 04/05 Glucose better controlled. Empagliflozin, Lantus and metformin started Continue AccuCheks covering with sliding scale. Hypoglycemia protocol available as needed. Continue current medications. Consider changing to glipizide due to cost. (5) Essential hypertension: Code(s): I10 - Essential (primary) hypertension Status: Acute Assessment and Plan: Patient's blood pressure was reviewed on 04/05 Blood pressure was extremely elevated on admission to 220/150 related to being off her home medications. She was started on Coreg and Lasix. BP better. Add lisinoprl for low EF Will continue to monitor (6) Elevated troponin: Code(s): R79.89 - Other specified abnormal findings of blood chemistry Status: Acute Assessment and Plan: Related to PE and CHF. Levels flat. not felt to be ACS. As above (7) Polycythemia: Code(s): D75.1 - Secondary polycythemia Status: Acute Assessment and Plan: Patient with polycythemia felt related to chronic hypoxic respiratory failure. Will continue give patient diuretics and wean oxygen as tolerated. Check Apnea Link when off O2. Wean O2 as tolerated (8) Proteinuria due to type 2 diabetes mellitus: Code(s): E11.29 - Type 2 diabetes mellitus with other diabetic kidney complication; R80.9 - Proteinuria, unspecified Status: Acute
[2023-04-05] MEDS: WARFARIN (*PBKC) 5 MG TABLET PO (16:21)
[2023-04-05 16:46] LABS: Glucose Point of Care 148 mg/dl (65-105)
[2023-04-05 20:03] LABS: Glucose Point of Care 188 mg/dl (65-105)
[2023-04-05] MEDS: INSULIN GLARGINE (*BKC) 100 UNITS/ML 11 UNITS SUB-Q (20:41)
[2023-04-06] VITALS (18 sets, daily range): BP systolic 103–143; BP diastolic 64–95; PULSE 53–84; RESP 16–18; TEMP 35.7–36.5; O2SAT 95–100
[2023-04-06 05:21] LABS: Basophils Absolute Auto 0.1 K/mm3 (0.0-0.1); Basophils Percent Auto 0.8 % (0.2-1.2); Eosinophils Absolute Auto 0.1 K/mm3 (0-0.3); Eosinophils Percent Auto 1.1 % (0-4.4); Hemoglobin 15.9 g/dL (12.0-15.0); Immature Granulocyte Absolute 0.01 K/mm3 (0.00-0.031); Immature Granulocyte Percent A 0.2 % (0-0.5); Lymphocytes Absolute Auto 1.96 K/mm3 (0.9-3.2); Lymphocytes Percent Auto 32.1 % (18.3-44.2); Mean Corpuscular HGB Conc 32.4 g/dl (32-36); Mean Corpuscular Hemoglobin 30.5 pg (26-34); Mean Platelet Volume 11.4 fl (7.4-10.4); Monocytes Absolute Auto 0.7 K/mm3 (0.1-0.6); Monocytes Percent Auto 11.3 % (2.6-8.5); Neutrophils Absolute Auto 3.3 K/mm3 (1.3-6.7); Neutrophils Percent Auto 54.5 % (45.5-73.1); Platelet Count Result 231 k/mm3 (150-375); Red Blood Count 5.21 M/mm3 (4.2-5.4); Red Cell Distribution Width 15.5 % (11.5-14.5); White Blood Count 6.1 K/mm3 (4.5-10.0)
[2023-04-06 05:25] LABS: INR 1.1; Prothrombin Time 14.8 Seconds (11.1-14.7)
[2023-04-06 05:29] LABS: Albumin Level 2.9 g/dL (3.5-5.1); Blood Urea Nitrogen 18 mg/dL (7-17); Calcium 8.9 mg/dL (8.4-10.2); Carbon Dioxide > 40 mmol/L (22-30); Chloride 94 mmol/L (98-107); Estimated CRCL calculation 68 ml/min; Estimated Glomerular Filt Rate > 60; Glucose 75 mg/dL (65-110); Magnesium 1.8 mg/dL (1.6-2.3); Phosphorus 5.6 mg/dL (2.5-4.5); Potassium 3.3 mmol/L (3.4-5.0); Sodium 136 mmol/L (137-145)
[2023-04-06 07:56] LABS: Glucose Point of Care 100 mg/dl (65-105)
--- NOTE | 2023-04-06 08:07 | PM.PNCARD ---
Progress Note: A&P Assessment and Plan (1) Pulmonary embolism: Qualifiers: Acute cor pulmonale presence: without acute cor pulmonale Chronicity: acute Pulmonary embolism type: other Qualified Code(s): I26.99 - Other pulmonary embolism without acute cor pulmonale Code(s): I26.99 - Other pulmonary embolism without acute cor pulmonale Status: Acute Assessment and Plan: On Lovenox and started Warfarin with goal INR 2-3. (2) Elevated troponin: Code(s): R79.89 - Other specified abnormal findings of blood chemistry Status: Acute Assessment and Plan: Probably due to PE and CHF. Doubt ACS given no chest pains and no significant ST changes on EKG and slightly elevated flat troponin up to .057. (3) New onset of congestive heart failure: Code(s): I50.9 - Heart failure, unspecified Status: Acute Assessment and Plan: Acute on chronic systolic heart failure or acute systolic heart failure. On Lasix 40 mg IV BID. She still has crackles in lung on exam. On Jardiance, Coreg, Lisinopril. Start Spironolactone 12.5 mg daily. Monitor fluid status and electrolytes. Since have acute pulm embolism, would have her treated for this with anticoagulation, and will workup her heart failure in future as outpatient. (4) Essential hypertension: Code(s): I10 - Essential (primary) hypertension Status: Acute Assessment and Plan: Stable. (5) Diabetes mellitus: Code(s): E11.9 - Type 2 diabetes mellitus without complications Status: Acute Assessment and Plan: Managed as per hospitalist. Subjective Date/time seen: 04/06/23 08:07 Interval history: Denies chest pain or sob. Exam Const: General: cooperative, healthy appearing and comfortable Orientation/consciousness: oriented to person, oriented to place and oriented to time Resp: Auscultation: crackles, no rhonchi and no wheezes Cardio: Rate: regular rate Rhythm: regular rhythm Heart sounds: no murmurs Peripheral pulses: popliteal pulses present Neuro: General: oriented to person, oriented to place and oriented to time Extrem: Right lower extremity: edema Left lower extremity: edema Other: Mild edema of lower legs and feet Objective Data Vital Signs Vital Signs: Vital Signs - 24 hr 04/05/23 08:36 04/05/23 10:17 04/05/23 10:00 Temperature Pulse Rate 69 62 Respiratory Rate Blood Pressure 114/65 Pulse Oximetry Oxygen Delivery Oxygen Flow Rate 04/05/23 11:26 04/05/23 13:21 04/05/23 12:00 Temperature 96.2 F L Pulse Rate 62 Respiratory Rate 18 Blood Pressure 108/71 Pulse Oximetry 95 93 95 Oxygen Delivery Nasal Cannula Nasal Cannula Oxygen Flow Rate 2 2 04/05/23 12:00 04/05/23 15:51 04/05/23 14:00 Temperature 96.4 F L Pulse Rate 67 62 61 Respiratory Rate 18 Blood Pressure 113/74 Pulse Oximetry 99 Oxygen Delivery Oxygen Flow Rate 04/05/23 16:00 04/05/23 16:00 04/05/23 18:00 Temperature Pulse Rate 60 61 Respiratory Rate Blood Pressure Pulse Oximetry 99 Oxygen Delivery Nasal Cannula Oxygen Flow Rate 2 04/05/23 19:54 04/05/23 20:41 04/05/23 20:00 Temperature 97.6 F Pulse Rate 67 63 Respiratory Rate 18 Blood Pressure 139/75 Pulse Oximetry 100 100 Oxygen Delivery Nasal Cannula Oxygen Flow Rate 2 04/05/23 20:00 04/05/23 22:58 04/05/23 23:28 Temperature 97.2 F L Pulse Rate 63 65 Respiratory Rate 18 Blood Pressure 117/67 Pulse Oximetry 96 96 Oxygen Delivery Nasal Cannula Oxygen Flow Rate 2 04/06/23 00:00 04/06/23 03:55 04/06/23 04:00 Temperature 97.7 F Pulse Rate 61 65 Respiratory Rate 18 Blood Pressure 125/83 Pulse Oximetry 96 99 Oxygen Delivery Nasal Cannula Oxygen Flow Rate 2 04/06/23 04:50 04/06/23 04:00 04/06/23 07:53 Temperature 97.6 F Pulse Rate 65 77 Respiratory Rate 18 Blood Pressure 143/95 H Pulse Oximetry 9
[2023-04-06] MEDS: metFORMIN HCL 500 MG TABLET PO ×2 (09:48→18:06)
[2023-04-06] MEDS: carvediloL 12.5 MG TABLET PO ×2 (09:48→20:47)
[2023-04-06] MEDS: SPIRONOLACTONE 12.5 MG TABLET PO (09:49)
[2023-04-06] MEDS: FUROSEMIDE INJ 40 MG/4 ML VIAL IV PUSH ×2 (09:49→20:55)
[2023-04-06] MEDS: lisinopriL 10 MG TABLET PO (09:49)
[2023-04-06] MEDS: EMPAGLIFLOZIN 10 MG TABLET PO (09:49)
[2023-04-06] MEDS: POTASSIUM CHLORIDE INJ 40 MEQ in SODIUM CHLORIDE 0.9% IV 500 ML 130 MEQ IVPB (10:17)
--- NOTE | 2023-04-06 10:42 | PM.IMPN ---
Progress Note: A&P Assessment and Plan (1) Acute respiratory failure with hypoxia: Code(s): J96.01 - Acute respiratory failure with hypoxia Status: Acute Assessment and Plan: Patient presents with hypoxia. CXR showing CMG, pulmonary edema and bilateral pleural effusions. CTA showing nonocclusive PE lateral segment RML and absent contrast bilateral LE with moderate right and small left pleural effusions. Also with ground glass opacities, CMG and moderate pericardial effusion. Hypoxia related to PE and CHF exacerbation. Continue IV Lasix. Continue Lovenox Wean O2 as tolerated (2) New onset of congestive heart failure: Code(s): I50.9 - Heart failure, unspecified Status: Acute Assessment and Plan: Patient with acute systolic and diastolic CHF. Imaging as mentioned above. Pedal edema and pulmonary edema noted. BNP 8550. Echo showing: --EF 35% with hypokinesis of apex, anterior and anteroseptal cortés. --Can not rule out LV thrombus. Speckled myocardium. Small pericardial effusion. --Ascending aortic plaque. large left pleural effusion. --Diastolic dysfunction and severe pulmonary HTN. Moderate-severe MR and Mod TR. Started on IV Lasix. Empagliflozin and Coreg added. I&O inaccurate. Daily weights showing down 1.7kg. Follow renal function, electrolyte panel and UOP. Low-sodium consistent carbohydrate diet ordered. CHF teaching. Continue diuresis. Cardiology consulted and appreciate their input. labs drawn to assess for infiltrative cardiomyopathy Add Lisinopril. (3) Pulmonary embolism: Qualifiers: Acute cor pulmonale presence: without acute cor pulmonale Chronicity: acute Pulmonary embolism type: other Qualified Code(s): I26.99 - Other pulmonary embolism without acute cor pulmonale Code(s): I26.99 - Other pulmonary embolism without acute cor pulmonale Status: Acute Assessment and Plan: Patient has subsegmental pulmonary embolism with poor contrast opacification to the lower lobes. Patient was placed on therapeutic Lovenox. Pulmonary embolism likely due to patient's recent travel. LE venous Dopplers negative for DVT Echo as above. Continue the same. She does not have insurance so will transition to Coumadin. Daily INR (4) Uncontrolled diabetes mellitus: Qualifiers: Diabetes mellitus type: type 2 Glycemic state: with hyperglycemia Qualified Code(s): E11.65 - Type 2 diabetes mellitus with hyperglycemia Status: Acute Assessment and Plan: A1c 12.9. The patient's blood glucose was reviewed on 04/06 Glucose better controlled. Empagliflozin, Lantus and metformin started Continue AccuCheks covering with sliding scale. Hypoglycemia protocol available as needed. Continue current medications. Consider changing to glipizide due to cost. (5) Essential hypertension: Code(s): I10 - Essential (primary) hypertension Status: Acute Assessment and Plan: Patient's blood pressure was reviewed on 04/06 Blood pressure was extremely elevated on admission to 220/150 related to being off her home medications. She was started on Coreg and Lasix. BP better. Add lisinopril for low EF Will continue to monitor (6) Elevated troponin: Code(s): R79.89 - Other specified abnormal findings of blood chemistry Status: Acute Assessment and Plan: Related to PE and CHF. Levels flat. not felt to be ACS. As above (7) Polycythemia: Code(s): D75.1 - Secondary polycythemia Status: Acute Assessment and Plan: Patient with polycythemia felt related to chronic hypoxic respiratory failure. Will continue give patient diuretics and wean oxygen as tolerated. Check Apnea Link when off O2. Wean O2 as tolerated (8) Proteinuria due to type 2 diabetes mellitus: Code(s): E11.29 - Type 2 diabetes mellitus with other diabetic kidney complication; R80.9 - Proteinuria, unspecified Status: Acute
[2023-04-06] MEDS: ENOXAPARIN 80 MG/0.8 ML SYRINGE 70 MG SUB-Q ×2 (11:08→21:18)
[2023-04-06 12:33] LABS: Glucose Point of Care 120 mg/dl (65-105)
[2023-04-06 14:48] LABS: NIL 0.01 IU/mL; Quantiferon TB Plus, 1T NEGATIVE (NEGATIVE); TB2-NIL 0.01 IU/mL
[2023-04-06 16:48] LABS: Glucose Point of Care 112 mg/dl (65-105)
[2023-04-06] MEDS: WARFARIN (*PBKC) 5 MG TABLET PO (18:05)
[2023-04-06 20:41] LABS: Glucose Point of Care 174 mg/dl (65-105)
[2023-04-06] MEDS: INSULIN GLARGINE (*BKC) 100 UNITS/ML 11 UNITS SUB-Q (20:48)
[2023-04-07] VITALS (7 sets, daily range): BP systolic 123–153; BP diastolic 87–100; PULSE 51–85; RESP 18–22; TEMP 36.1–36.5; O2SAT 92–94
[2023-04-07 04:56] LABS: INR 1.1; Prothrombin Time 14.5 Seconds (11.1-14.7)
--- NOTE | 2023-04-07 06:30 | PC.NURSE ---
NIH score 25. Dr Burks called he stated shes is on the medications she needs to be on and he will evaluate her in the ICU.. Dr Hahn informed. Pt awake moving right arm but only following simple commands. non verbal. Pt does not respond to questions in [place]ijani by family members
[2023-04-07 06:31] LABS: Glucose Point of Care 126 mg/dl (65-105)
--- NOTE | 2023-04-07 06:49 | PC.NURSE ---
0530 RN called to patient room by son. Upon arrival noted patient to have right sided facial droop, right upper and lower extremity weakness and aphasia. Son states patient was normal at 0500. Called placed to provider. Vitals taken and blood glucose obtained. [address] head. Patient to CT via wheelchair, with son. [address] Patten. Orders received to contact head of product. 06 Dr Hahn called and informed of patient status. Orders received to move patient to ICU and contact Neurology for further orders.
--- NOTE | 2023-04-07 07:55 | WPDCNINT ---
Assessment and Plan Assessment and plan (1) Stroke: Code(s): I63.9 - Cerebral infarction, unspecified Status: Acute Assessment and Plan: Likely ischemic stroke, symptoms began early this morning -CT brain with no acute abnormality -CTA head and neck: Left vertebral artery is nearly completely unopacified, either due to proximal occlusion or marked hypoplasia. There is minimal reconstitution/filling of the mid to distal left vertebral artery, which is markedly small in caliber.Remaining major cervical and intracranial vessels are unremarkable NIH score is 25 -patient received her last dose therapeutic Lovenox on 04/06/2023 at 9:18 p.m. -I called [facility] with discussed the neurologist Dr. Huynh, who has accepted the patient, recommended transferring the patient to the ED, she will be talking to them. He also requested to push the images to [facility] which have done. According to Dr. Huynh, patient may not be a candidate for tPA as she received full-dose Lovenox [place] 12 hours ago. She may require thrombectomy (2) Acute respiratory failure with hypoxia: Code(s): J96.01 - Acute respiratory failure with hypoxia Status: Acute Assessment and Plan: Respiratory failure likely related to pulmonary embolism, currently on room air with adequate O2 sats -continue to monitor (3) Pulmonary embolism: Qualifiers: Acute cor pulmonale presence: without acute cor pulmonale Chronicity: acute Pulmonary embolism type: other Qualified Code(s): I26.99 - Other pulmonary embolism without acute cor pulmonale Code(s): I26.99 - Other pulmonary embolism without acute cor pulmonale Status: Acute Assessment and Plan: Patient presented with shortness of breath, travel from [place] 10 days prior to admission -CTA chest on admission showed pulmonary embolism -patient on therapeutic Lovenox and started on Coumadin on 04/05 -INR 1.1 this morning (4) Uncontrolled diabetes mellitus: Qualifiers: Diabetes mellitus type: type 2 Glycemic state: with hyperglycemia Qualified Code(s): E11.65 - Type 2 diabetes mellitus with hyperglycemia Status: Acute Assessment and Plan: Blood sugars have been stable, patient on metformin, Jardiance -continue sliding scale insulin and Accu-Cheks -hemoglobin A1c is 12.9 this admission (5) Essential hypertension: Code(s): I10 - Essential (primary) hypertension Status: Acute Assessment and Plan: Patient with history of essential hypertension, currently on carvedilol, furosemide, lisinopril, spironolactone (6) Cardiomyopathy: Code(s): I42.9 - Cardiomyopathy, unspecified Status: Acute Assessment and Plan: Cardiomyopathy with congestive heart failure likely related to possible ischemic causes secondary to essential hypertension and control diabetes -patient also has pulmonary hypertension, -cardiology following the patient, continue carvedilol, furosemide, lisinopril and spironolactone Echocardiogram 04/04/2023 Summary ? 1. Left ventricular systolic function is moderately reduced, estimated at 35% with hypokinesis of the apex, anterior and anteroseptal cortés.? Cannot rule out LV apical thrombus.? Myocardium has a speckled appearance which can be seen with infiltrative process.? Clinical correlation advised. ? 2. Large left pleural effusion. ? 3. There is small pericardial effusion without evidence for tamponade physiology. ? 4. There is a fixed calcified echodensity in the ascending aorta most likely consistent with calcified plaque.? Clinical correlation advised.? Consider CT angiogram of the chest or transesophageal echocardiogram if clinically indicated. ? 5. Left ventricular chamber dimension is normal. ? 6. There is mildly increased left ventricular wall thickness. ? 7. The left ventricular diastolic function is abnormal. ? 8. Right atrial chamber dimension is severely enlarged. ? 9. There is
--- NOTE | 2023-04-07 08:04 | PM.TDS ---
Transfer Discharge Sum: Prov Provider Date of admission: 04/04/23 10:20 Primary care physician: PHYSICIAN NOT ON STAFF Admitting clinician: Joyce Edwards DO Consults: 04/04/23 19:16 Consult to Physician Routine Comment: called office and notified them of consult Consulting Provider: Reymundo Jacob order desk caller/MD group to consult: cardilogy Reason for consultation: abnml Echo Has provider been notified: Yes DS: Admitting Diagnosis Discharge Date 04/07/23 Admitting Diagnosis sob DS: Discharge Diagnosis Discharge Diagnosis (1) Stroke: Code(s): I63.9 - Cerebral infarction, unspecified Status: Acute Assessment and Plan: Likely ischemic stroke, symptoms began early this morning -CT brain with no acute abnormality -CTA head and neck: Left vertebral artery is nearly completely unopacified, either due to proximal occlusion or marked hypoplasia. There is minimal reconstitution/filling of the mid to distal left vertebral artery, which is markedly small in caliber.Remaining major cervical and intracranial vessels are unremarkable NIH score is 25 -patient received her last dose therapeutic Lovenox on 04/06/2023 at 9:18 p.m. -I called [facility] with discussed the neurologist Dr. Huynh, who has accepted the patient, recommended transferring the patient to the ED, she will be talking to them. He also requested to push the images to [facility] which have done. According to Dr. Huynh, patient may not be a candidate for tPA as she received full-dose Lovenox [place] 12 hours ago. She may require thrombectomy (2) Acute respiratory failure with hypoxia: Code(s): J96.01 - Acute respiratory failure with hypoxia Status: Acute Assessment and Plan: Respiratory failure likely related to pulmonary embolism, currently on room air with adequate O2 sats -continue to monitor (3) Pulmonary embolism: Qualifiers: Acute cor pulmonale presence: without acute cor pulmonale Chronicity: acute Pulmonary embolism type: other Qualified Code(s): I26.99 - Other pulmonary embolism without acute cor pulmonale Code(s): I26.99 - Other pulmonary embolism without acute cor pulmonale Status: Acute Assessment and Plan: Patient presented with shortness of breath, travel from [place] 10 days prior to admission -CTA chest on admission showed pulmonary embolism -patient on therapeutic Lovenox and started on Coumadin on 04/05 -INR 1.1 this morning (4) Uncontrolled diabetes mellitus: Qualifiers: Diabetes mellitus type: type 2 Glycemic state: with hyperglycemia Qualified Code(s): E11.65 - Type 2 diabetes mellitus with hyperglycemia Status: Acute Assessment and Plan: Blood sugars have been stable, patient on metformin, Jardiance -continue sliding scale insulin and Accu-Cheks -hemoglobin A1c is 12.9 this admission (5) Essential hypertension: Code(s): I10 - Essential (primary) hypertension Status: Acute Assessment and Plan: Patient with history of essential hypertension, currently on carvedilol, furosemide, lisinopril, spironolactone (6) Cardiomyopathy: Code(s): I42.9 - Cardiomyopathy, unspecified Status: Acute Assessment and Plan: Cardiomyopathy with congestive heart failure likely related to possible ischemic causes secondary to essential hypertension and control diabetes -patient also has pulmonary hypertension, -cardiology following the patient, continue carvedilol, furosemide, lisinopril and spironolactone Echocardiogram 04/04/2023 Summary ? 1. Left ventricular systolic function is moderately reduced, estimated at 35% with hypokinesis of the apex, anterior and anteroseptal cortés.? Cannot rule out LV apical thrombus.? Myocardium has a speckled appearance which can be seen with infiltrative process.? Clinical correlation advised. ? 2. Large left pleural effusion. ? 3. There is small pericardial effusio
--- NOTE | 2023-04-07 08:11 | PC.NURSE ---
Patient transferred via [employer] helicopter to [facility] ED. Report called to and RN by Dr Hahn and Kaity Mitchell [employer] Professor respectively.
[2023-04-07 08:59] LABS: Glucose Point of Care 125 mg/dl (65-105)
[2023-04-08 21:02] LABS: Albumin 2.7 g/dL (3.8-4.8); Alpha 1 Globulin 0.3 g/dL (0.2-0.3); Alpha 2 Globulin 0.7 g/dL (0.5-0.9); Beta 1 Globulin 0.6 g/dL (0.4-0.6); Gamma Globulin 1.2 g/dL (0.8-1.7); Protein, Total 6.1 g/dL (6.1-8.1)
[2023-04-10 14:43] LABS: Creatinine, Random Urine 53 mg/dL (20-275); Total Protein/Creatinine Ratio 396 mg/g creat (24-184)
== END 2023-04-07 08:05 | disposition short-term general hospital (02) | DRG 134 ==
LOC: ANHED 19:01 → ANHIMU 21:40 → ANHICU 04-08 13:59 → ANHIMU 04-08 13:59
PROVIDERS: Internal Medicine; Student in an Organized Health Care Education/Training Program; Admitting Provider Internal Medicine; Emergency Provider Physician Assistant; Visit Provider Internal Medicine
DX: I26.99 Other pulmonary embolism without acute cor pulmonale (principal); J96.01 Acute respiratory failure with hypoxia; I50.43 Acute on chronic combined systolic (congestive) and diastolic (congestive) heart failure; I63.212 Cerebral infarction due to unspecified occlusion or stenosis of left vertebral artery; I27.20 Pulmonary hypertension, unspecified; E11.65 Type 2 diabetes mellitus with hyperglycemia; D75.1 Secondary polycythemia; R47.01 Aphasia; I11.0 Hypertensive heart disease with heart failure; R79.89 Other specified abnormal findings of blood chemistry; R80.9 Proteinuria, unspecified; R29.725 NIHSS score 25; I08.1 Rheumatic disorders of both mitral and tricuspid valves
CPT/HCPCS: 36415; 36600; 70450; 70496; 70498; 71045; 71275; 80048; 80053; 80069; 81001; 82010; 82375; 82570; 82607; 82728; 82746; 82784; 82805; 82948; 83036; 83050; 83540; 83550; 83605; 83735; 83880; 84100; 84155; 84156; 84165; 84166; 84439; 84443; 84480; 84484; 85025; 85027; 85610; 85730; 86334; 86335; 86480; 93005; 93970; 96372; 96374; 96375; 96376; 99285; A9270; C8929; G0378; J1650; J1815; J1940; J3480; J7040; Q9957; Q9967